=== PATIENT | male | born 2000 | race Caucasian/White ===

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

== ENCOUNTER 2023-05-11 18:32 | Emergency (ER) | payer OTHER ==
[2023-05-11 18:37] VITALS: BP 129/75; PULSE 88; RESP 18; TEMP 97.8; BMI 25.1
[2023-05-11] MEDS ORDERED: NAPROXEN 500 MG TABLET PO ONE (19:07)
[2023-05-11] MEDS ORDERED: NAPROXEN 500 MG TABLET ONE (19:13)
== END 2023-05-11 20:10 | disposition home or self-care (01) ==
LOC: JERFT 18:32
DX: S80.912A Unspecified superficial injury of left knee, initial encounter (principal); M25.562 Pain in left knee; M25.462 Effusion, left knee; X50.0XXA Overexertion from strenuous movement or load, initial encounter; Y93.67 Activity, basketball; Y92.310 Basketball court as the place of occurrence of the external cause
CPT/HCPCS: 73562-TC-LT-FY; 99283-25

== ENCOUNTER 2023-06-27 12:37 | Emergency (ER) | payer OTHER ==
[2023-06-27 12:46] VITALS: BP 130/80; PULSE 88; RESP 18; BMI 25.5
[2023-06-27] MEDS ORDERED: ACETAMINOPHEN 500 MG TABLET (FP) PO ONE (13:25)
[2023-06-27] MEDS ORDERED: ACETAMINOPHEN 500 MG TABLET (FP) ONE (13:34)
[2023-06-27 14:14] VITALS: TEMP 100
== END 2023-06-27 14:14 | disposition home or self-care (01) ==
LOC: JERFT 12:37
DX: R50.9 Fever, unspecified (principal); M79.10 Myalgia, unspecified site; Z20.822 Contact with and (suspected) exposure to COVID-19
CPT/HCPCS: 0241U-QW; 99285-25